=== PATIENT | male | born 1950 | race African-American/Black ===

== ENCOUNTER → 2017-04-25 | Outpatient (CLI) | payer BC | END | disposition home or self-care (01) | LOC: CT 10:33 | DX: B18.9 Chronic viral hepatitis, unspecified (principal); N20.0 Calculus of kidney; M47.896 Other spondylosis, lumbar region; R59.1 Generalized enlarged lymph nodes | CPT/HCPCS: 74176 ==

== ENCOUNTER → 2018-11-22 | Day surgery (SDC) | payer BC ==
[~2018-11-22] MED LIST: ASPI-482 PO; ATOR20TA58 PO; BETA15CR5 TP; BUPIVACAINE MPF 0.5% 30 ML VIAL. ONE; CYCL10TA2 PO; DEXAMETHASONE SOD PHOS 4 MG/ML VIAL ONE; DEXTROSE 50% 25 GM / 50ML DISP.SYRIN. IV ONE; HYDR-3164 PO; HYDROmorphone 2 MG/ML VIAL IV PRN; INSU100I13 SQ; INSU100I17 SQ; INSU100I27 SQ; INSU100V31 SQ; INSULIN LISPRO 100 UNIT/ML 3ML VIAL for OP,RR ONLY. SQ PRN; IRBE1TAB5 PO; IV RINGERS,LACTATED 1000ML 1,000 ML IV SCH; LEVO125T5 PO; LIDOCAINE 1% PF 2 ML VIAL. ID PRN; LIDOCAINE 2% PF 5 ML VIAL. ONE; MIDAZOLAM HCL/PF 2 MG/2 ML VIAL. ONE; MORPHINE SULFATE 2 MG/ML VIAL. IV PRN; ONDANSETRON PF 4 MG/2 ML VIAL. IV PRN; ONDANSETRON PF 4 MG/2 ML VIAL. ONE; PROB500T23 PO; PROCHLORPERAZINE 10 MG/2 ML VIAL. IV PRN; PROPOFOL 20 ML IV ONE; SEVOFLURANE 31 TO 60 MINUTES. IH ONE; TELM40TA4 PO; ceFAZolin 2GM PREMIX 2 GM/50 ML BAG IV ONE; ePHEDrine PF IN SALINE 50 MG/10 ML SYRINGE. IV ONE; fentaNYL PF VIAL 100 MCG/2 ML VIAL IV PRN; fentaNYL PF VIAL 100 MCG/2 ML VIAL ONE
--- NOTE | 2018-11-22 11:41 | DISCH ---
DISCHARGE INSTRUCTIONS Condition on Discharge Condition on Discharge: Stable Activity After Discharge Activity Instructions for Disc: No restrictions, Other, see below (fine motor use with left hand only avoid hard grasp for 2 weeks) Weight Bearing Status after Di: No restrictions Diet after Discharge Diet after Discharge: Diabetic No Calorie Level Liquid Texture: Thin Liquid Wound Incision Care Wound/Incision Care: Ice to area for comfort, Keep wound elevated, Change dressing (May remove dressing in 3 days review report any redness or drainage, keep butterfly strips intact) Checks after Discharge Checks after discharge: Check blood sugar, ac/hs Contacting the DRVikram after DC Call your doctor for: Concerns you may have Follow-Up Follow up with: Dr. Mims 10 days Treatment/Equipment after DC Adaptive Equipment Issued: None MICHAEL MIMS MD Nov 22, 2018 11:41
[2018-11-22 13:45] VITALS: BP 153/86
--- NOTE | 2018-11-22 23:36 | PDOC4 ---
Operative Note Operative Note Date of surgery: 11/22/2018 Preoperative diagnosis: Left hand mass suspicious for ganglion cyst Postoperative diagnosis: Gouty mass left hand at dorsal long finger metacarpal phalangeal joint Operative procedure: Excision gouty mass left hand Surgeon: Prasanna Anesthesia: Gen. Estimated blood loss: 2 mL Complications: None Specimens: Gouty mass to pathology Operative indications: Jaya is a 67-year-old male that has had a long- standing enlarging mass over the dorsal aspect of his MCP joint of the long finger in his left hand he states that it seemed to get bigger with aggravating condition and occasionally some smaller but overall is getting larger and not particularly painful but he was concerned by its appearance and after we discussed the possibility of nonoperative continued observation he wished to proceed with more definitive treatment and get the mass explored and excised. I told him that I was not sure of the origin of the mass but by his description was suspicious for the possibility of a ganglion cyst and noted the possibility of recurrence infection compromise of the joint extensor tendon nerve or blood vessel damage medical or other anesthetic complications among others. He wishes to proceed with surgical evaluation and treatment Operative text: Patient was identified procedure verified patient placed in the supine position on the operating table. After adequate amounts of general anesthesia were administered the left upper extremity was prepped and draped in standard sterile fashion and the left upper extremity was exsanguinated by Esmarch bandage tourniquet inflated to 250 mmHg. After timeout was performed patient chute identified and verified a midline incision was made just radially to the mass to avoid an incision directly over the MCP joint. Dissection was carried down to the mass which was initially perhaps expected to be a ganglion cyst although several gouty appearing deposits were noted overlying the joint capsule and extensor mechanism. The gouty deposits were excised from the overlying tissue and were sent for pathological evaluation and confirmation. Remaining deposits were sharply debrided with care not to disrupt the integrity of the extensor mechanism or underlying joint capsule. Thorough irrigation carried out normal saline solution bleeding points controlled by electrocautery closure accomplished with buried Vicryl subcuticular Monocryl Steri-Strips and Mastisol sterile dressings fingers noted be warm pink find deflation of tourniquet patient was returned recovery room in stable condition having tolerated procedure well MICHAEL THOMSON MD Nov 22, 2018 23:35
--- NOTE | 2018-11-25 16:07 | PATHOLOGY ---
[facility] Accession Number: [id number] . 01 Material submitted: . finger - LEFT HAND DORSAL LONG FINGER SUSPECTED GOUT. Modifiers: left, dorsal . 01 Clinical history: . Suspected Gout . 02 Diagnosis: Segments of synovial tissue, left hand dorsal long finger: - Amorphous deposits with surrounding granulomatous inflammatory reaction, consistent with gout. LBQ/11/25/2018 . 02 Comment: As the specimen was received in formalin, there are no polarizable crystals identified. However, the microscopic section does reveal deposits surrounded by a granulomatous inflammatory reaction which is typical of and consistent with gout. (JPM/db; 11/25/2018) . 02 Electronically signed: . Dav Mckeon MD, Pathologist NPI- [id number] . 01 Gross description: . The specimen is received in formalin, labeled "Jaya Delarosa, left hand dorsal long finger suspected gout", consists of several gonzalez-abraham rubbery irregular fragments of soft tissue measuring 1.4 x 1.2 x 0.8 cm in aggregate. These fragments consist of gonzalez-white chalky material. Entirely submitted in A1. ([facility]; 11/22/2018) SHS/SHS . 02 Pathologist provided ICD-10: M10.9 . 02 CPT . 440447 Specimen Comment: A courtesy copy of this report has been sent to Specimen Comment: [phone], , . Specimen Comment: Report sent to ,DR SILVA / DR BRANTLEY Performed at: 01 [facility] [address], [place], [place] [id number] MD Danie Dias MD Phone: [phone] Performed at: 02 [facility] [address] [place], [place] [id number] MD Dav Mckeon MD Phone: [phone]
== END ==
LOC: SURG 10:05
PROVIDERS: ATTEND Orthopaedic Surgery
DX: M67.422 Ganglion, left elbow (principal); Z79.899 Other long term (current) drug therapy
CPT/HCPCS: 26160; 82962; 88305; A7015; J0171; J0696; J1100; J2001; J2250; J2405; J2704; J3010; J3490; J7042; A4461